=== PATIENT | female | born 1975 | race Caucasian/White ===

== ENCOUNTER 2021-04-26 18:54 | Emergency (ER) | payer OTHER ==
[2021-04-26 19:11] VITALS: BP 112/62
[2021-04-26] MEDS ORDERED: PROPARACAINE 0.5% OPHTH DROPS 15 ML EACHEYE STA (19:37)
[2021-04-26] MEDS ORDERED: ERYTHROMYCIN OPHTH OINT 1 GM TUBE RIGHTEYE STA (19:47)
--- NOTE | 2021-04-26 19:48 | ED Physician Documentation ---
PD HPI OPHTHO - Stated complaint Stated Complaint: RT EYE PX - Chief complaint Chief Complaint: Heent - History obtained from History obtained from: Patient (Severe eye pain starting medially when she foot are soft contact in this morning. She flushed it with contact lens solution but has persistent pain and now some drainage. 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 : None HEENT: None Psych: None Musculoskeletal: None Derm: None - Past Surgical History Past Surgical History: Yes Ortho: Other - Present Medications Home Medications: Ambulatory Orders Medication Instructions Recorded Confirmed Erythromycin Base [Erythromycin 1 appful OP 5XD 7 Days #1 gm 04/26/21 Ophthalmic Ointment] QUEtiapine [SEROquel] 100 mg PO QPM 04/26/21 04/26/21 - Allergies Allergies/Adverse Reactions: Allergies Allergy/AdvReac Type Severity Reaction Status Date / Time No Known Drug Allergies Allergy Verified 04/26/21 19:11 - Social History Does the pt smoke?: No Smoking Status: Never smoker Does the pt drink ETOH?: Yes ETOH Use: Wine Does the pt have substance abuse?: No - Immunizations Immunizations are current?: Yes - POLST Patient has POLST: No PD ED PE NORMAL - Vitals Vital signs reviewed: Yes - General General: Alert and oriented X 3, No acute distress - HEENT HEENT: PERRL, EOMI, Other (Conjunctival injection, soft globes, tiny area of fluorescein uptake inferiorly consistent with small abrasion.) - Neck Neck: Supple, no meningeal sign, No bony TTP - Neuro Neuro: Alert and oriented X 3, Normal speech Results - Vitals Vitals: Vital Signs - 24 hr 04/26/21 19:08 Temperature 36.2 C L Heart Rate 74 Respiratory 16 Rate Blood Pressure 112/62 O2 Saturation 98 Oxygen O2 Source Room air Departure - Departure Disposition: 01 Home, Self Care Clinical Impression: Corneal abrasion Qualifiers: Encounter type: initial encounter Laterality: right Qualified Code(s): S05.01XA - Injury of conjunctiva and corneal abrasion without foreign body, right eye, initial encounter Condition: Good Record reviewed to determine appropriate education?: Yes Instructions: ED Eye Injury Corneal Abrasion Follow-Up: Humberto Clark MD [Provider Admit Priv/Credential] - Prescriptions: Erythromycin Base [Erythromycin Ophthalmic Ointment] 1 appful OP 5XD 7 Days #1 gm Comments: 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 Return for new or worsening symptoms. As discussed, do not wear your contacts until least 3 and preferably 7 days after symptoms have resolved.
== END 2021-04-26 19:57 | disposition home or self-care (01) ==
LOC: ED 18:54
DX: S05.01XA Injury of conjunctiva and corneal abrasion without foreign body, right eye, initial encounter (principal); X58.XXXA Exposure to other specified factors, initial encounter
CPT/HCPCS: 99282; 99283; J3490

== ENCOUNTER 2023-01-13 07:46 | Outpatient (CLI) | payer BC ==
--- NOTE | 2023-01-14 11:21 | Mammography Report ---
BILATERAL DIGITAL SCREENING MAMMOGRAM 3D/2D WITH EXAGGERATED CC: 01/13/2023 CLINICAL: Baseline exam. Routine screening. No prior exams were available for comparison. Both breasts are heterogeneously dense, which may obscure small masses (category c / 51-75% glandular tissue). No significant masses, calcifications, or other findings are seen in either breast. IMPRESSION: NEGATIVE There is no mammographic evidence of malignancy. A 1 year screening mammogram is recommended. Based on Tyrer-Cuzick model (a risk assessment model), the patient's lifetime risk is 28.9% and her 1 0 year risk is 6.0%. If a patient has an elevated risk, a more comprehensive evaluation should be con sidered and/or a referral to a genetic counselor. The [place] [employer], [employer], and NCCN Guidelines advise the consideration of Breast MRI as an adjunct to screening mammog xenia in patients whose "Lifetime risk to develop breast cancer" is 20% or higher. This exam was interpreted at Station ID: [id number]. NOTE: For mammograms, a report in lay terms will be sent to the patient. Approximately 15% of breast malignancies will not be visualized mammographically. In the management of a palpable breast mass, a negative mammogram must not discourage biopsy of a clinically suspicious lesion. Electronically Signed By: Silas Carrera M.D. acr/morenita:01/13/2023 12:36:28 letter sent: No_Letter ACR BI-RADS Category 1: Negative 3341F PARENCHYMAL PATTERN: (D) - The breast(s) demonstrate(s) heterogeneously dense fibroglandular parmoisés harvey. BI-RADS CATEGORY: (1) - 1 Mammogram [id number] 1 year screening LATERALITY: (B)
== END 2023-01-13 07:47 | disposition home or self-care (01) ==
LOC: DI.S 07:46
PROVIDERS: ATTEND Nurse Practitioner Family
DX: Z12.31 Encounter for screening mammogram for malignant neoplasm of breast (principal)

== ENCOUNTER 2023-06-01 19:38 | Outpatient (CLI) | payer BC ==
--- NOTE | 2023-06-02 13:20 | XRAY Report ---
PROCEDURE: Foot 3 View LT INDICATIONS: LEFT FOOT TOE PAIN TECHNIQUE: 3 views of the foot were acquired. COMPARISON: None. FINDINGS: Bones: No fractures or dislocations. Normal alignment on nonweightbearing view. Mild joint space na rrowing and periarticular osteophytosis of the first MTP joint. No suspicious bony lesions. Soft tissues: No suspicious soft tissue calcifications or masses. No soft tissue swelling or radiopa que foreign body. IMPRESSION: 1. No acute fracture. 2. Mild first MTP joint osteoarthritis. Reviewed by: Irene Srinivasan MD on 06/02/2023 1:19 PM PDT Approved by: Irene Srinivasan MD on 06/02/2023 1:19 PM PDT Station ID: [id number]
== END 2023-06-01 19:39 | disposition home or self-care (01) ==
LOC: DI 19:38
PROVIDERS: ATTEND Nurse Practitioner Family
DX: M19.072 Primary osteoarthritis, left ankle and foot (principal)

== ENCOUNTER 2023-07-09 08:00 | Outpatient (CLI) | payer BC, OTHER ==
--- NOTE | 2023-07-09 13:01 | XRAY Report ---
PROCEDURE: Sinus Complete INDICATIONS: HEADACHE/ CONGESTION TECHNIQUE: 3 views of the sinuses were acquired. COMPARISON: None. FINDINGS: Sinuses: The visualized sinuses demonstrate no air-fluid levels or mucosal thickening. The visualiz ed mastoids also appear clear. Bones: No suspicious bony lesions. Nasal septum is midline. IMPRESSION: No air-fluid levels to suggest acute sinusitis. Reviewed by: Adam Shetty on 07/09/2023 1:00 PM PST Approved by: Adam Shetty on 07/09/2023 1:00 PM [facility] Station ID: [id number]
[2023-07-09 14:41] LABS: BASOPHILS % (AUTO) 0.5 %; EOSINOPHILS # (AUTO) 0.1 10^3/uL (0.0-0.7); EOSINOPHILS % (AUTO) 1.8 %; HCT - HEMATOCRIT 45.9 % (37.0-47.0); HGB - HEMOGLOBIN 14.5 g/dL (12.0-16.0); LYMPHOCYTES # (AUTO) 2.1 10^3/uL (1.5-3.5); LYMPHOCYTES % (AUTO) 26.7 %; MEAN CORPUSCULAR HEMOGLOBIN 30.9 pg (27.0-31.0); MEAN CORPUSCULAR HGB CONC 31.6 g/dL (32.0-36.0); MEAN CORPUSCULAR VOLUME 97.9 fL (81.0-99.0); MEAN PLATELET VOLUME 10.2 fL (7.9-10.8); MONOCYTES # (AUTO) 0.5 10^3/uL (0.0-1.0); MONOCYTES % (AUTO) 6.7 %; PLT - PLATELET COUNT 294 10^3/uL (130-450); RED BLOOD COUNT 4.69 10^6/uL (4.20-5.40); RED CELL DISTRIBUTION WIDTH 12.4 % (12.0-15.0); WHITE BLOOD COUNT 7.7 x10^3/uL (4.8-10.8)
[2023-07-09 15:59] LABS: ALBUMIN 4.8 g/dL (3.2-5.5); ALBUMIN/GLOBULIN RATIO 1.5 (1.0-2.2); BILIRUBIN,TOTAL 0.6 mg/dL (0.2-1.0); CALCIUM 9.6 mg/dL (8.5-10.3); CREATININE 0.8 mg/dL (0.6-1.3); POTASSIUM 4.1 mmol/L (3.5-4.5); TOTAL PROTEIN 8.1 g/dL (6.4-8.9)
[2023-07-09 16:12] LABS: THYROID STIMULATING HORMONE 2.22 uIU/mL (0.34-5.60)
== END 2023-07-09 23:59 | disposition home or self-care (01) ==
LOC: DI.S 08:00
PROVIDERS: ATTEND Physician Assistant Medical
DX: R09.81 Nasal congestion (principal); R51.9 Headache, unspecified; R53.83 Other fatigue
CPT/HCPCS: 36415; 80053; 84443; 85025

== ENCOUNTER 2023-07-18 00:06 | Emergency (ER) | payer OTHER ==
[2023-07-18 00:50] LABS: BASOPHILS # (AUTO) 0.1 10^3/uL (0.0-0.1); BASOPHILS % (AUTO) 0.6 %; EOSINOPHILS # (AUTO) 0.3 10^3/uL (0.0-0.7); EOSINOPHILS % (AUTO) 3.2 %; HCT - HEMATOCRIT 41.1 % (37.0-47.0); HGB - HEMOGLOBIN 13.7 g/dL (12.0-16.0); LYMPHOCYTES # (AUTO) 1.8 10^3/uL (1.5-3.5); LYMPHOCYTES % (AUTO) 20.3 %; MEAN CORPUSCULAR HEMOGLOBIN 31.4 pg (27.0-31.0); MEAN CORPUSCULAR HGB CONC 33.3 g/dL (32.0-36.0); MEAN CORPUSCULAR VOLUME 94.1 fL (81.0-99.0); MEAN PLATELET VOLUME 9.3 fL (7.9-10.8); MONOCYTES # (AUTO) 0.8 10^3/uL (0.0-1.0); MONOCYTES % (AUTO) 9.1 %; NEUTROPHILS # (AUTO) 5.9 10^3/uL (1.5-6.6); NEUTROPHILS % (AUTO) 66.7 %; PLT - PLATELET COUNT 240 10^3/uL (130-450); RED BLOOD COUNT 4.37 10^6/uL (4.20-5.40); RED CELL DISTRIBUTION WIDTH 12.1 % (12.0-15.0); WHITE BLOOD COUNT 8.8 x10^3/uL (4.8-10.8)
[2023-07-18 00:58] LABS: BILIRUBIN,URINE NEGATIVE (NEGATIVE); GLUCOSE, URINE (UA) NEGATIVE (NEGATIVE); KETONES,URINE (UA) 15 mg/dL (NEGATIVE); LEUKOCYTE ESTERASE, URINE NEGATIVE (NEGATIVE); NITRITE,URINE NEGATIVE (NEGATIVE); OCCULT BLOOD,URINE NEGATIVE (NEGATIVE); PROTEIN,URINE NEGATIVE (NEGATIVE); UROBILINOGEN,URINE 0.2 (NORMAL) E.U./dL (NORMAL)
[2023-07-18 00:59] LABS: INR 1.1 (0.8-1.2); PT - PROTHROMBIN TIME 12.5 secs (9.9-12.6)
[2023-07-18 01:01] LABS: CLARITY,URINE CLEAR (CLEAR)
[2023-07-18 01:02] LABS: HCG UR QUAL NEGATIVE
[2023-07-18 01:16] LABS: ALBUMIN 4.9 g/dL (3.2-5.5); ALBUMIN/GLOBULIN RATIO 1.9 (1.0-2.2); ALKALINE PHOSPHATASE 65 IU/L (42-121); ALT ALANINE AMINOTRANSFERASE 30 IU/L (10-60); AST ASPARTATE AMINOTRANSFERASE 25 IU/L (10-42); BILIRUBIN,TOTAL 0.6 mg/dL (0.2-1.0); BUN - BLOOD UREA NITROGEN 16 mg/dL (6-20); CALCIUM 9.5 mg/dL (8.5-10.3); CARBON DIOXIDE - CO2 25 mmol/L (21-32); CHLORIDE 101 mmol/L (101-111); CK- CREATINE KINASE 32 IU/L (30-223); CREATININE 0.8 mg/dL (0.6-1.3); CRP - C-REACTIVE PROTEIN < 0.5 mg/dL (<0.5); GFR - MDRD 77 (>89); GLUCOSE 117 mg/dL (74-104); LIPASE 26 U/L (11-82); MAGNESIUM 1.9 mg/dL (1.7-2.3); PHOSPHORUS 3.4 mg/dL (2.5-5.0); POTASSIUM 3.7 mmol/L (3.5-4.5); SODIUM 134 mmol/L (135-145); TOTAL PROTEIN 7.5 g/dL (6.4-8.9)
--- NOTE | 2023-07-18 01:29 | ED Physician Documentation ---
History of Present Illness - Stated complaint Stated Complaint: BODY PX - Chief complaint Chief Complaint: General - History obtained from History obtained from: Patient - Additonal information Additional information: 48-year-old female with no reported past medical history presents by private vehicle from home for several days of tingling sensation in her bilateral lower extremities, new tremor, intermittent headaches. Patient had test confirmed COVID-[address] [facility] of this year. Afterwards she noticed the tingling sensation in the back of her bilateral lower extremities into the bases of her feet. Approximately 1.5 weeks ago the patient had a severe headache and blurred vision, she went to the walk-in clinic and was diagnosed with a sinus infection, which has since improved. Patient reports worsening tremor in her hands, at night she will feel intense chills and restless legs, making it difficult for her to sleep. The last 2 nights have been even more intense than usual. She was reviewing her symptoms on [employer], which stated that these were signs of possible MS. She called her insurance company's nursing hotline, and she was referred to the emergency department for evaluation. In the emergency department the patient continues to endorse a tingling sensation in the back of her bilateral lower extremities to her feet as well as a resting tremor in her bilateral hands. Denies numbness, weakness. Review of Systems Constitutional: reports: Fatigue. denies: Fever, Chills Cardiac: denies: Chest pain / pressure, Palpitations, Calf pain Respiratory: denies: Dyspnea, Cough, Wheezing GI: denies: Abdominal Pain, Nausea, Vomiting, Constipation : denies: Dysuria, Frequency Neurologic: reports: Headache, Other (tingling, tremor). 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 : None HEENT: None Psych: None Musculoskeletal: None Derm: None - Past Surgical History Past Surgical History: Yes Ortho: Other - Present Medications Home Medications: Ambulatory Orders Medication Instructions Recorded Confirmed QUEtiapine [SEROquel] 100 mg PO QPM 04/26/21 07/18/23 LORazepam [Ativan] 1 mg PO TID PRN #12 tablet 07/18/23 Propranolol [Inderal] 10 mg PO BID #30 tablet 07/18/23 - Allergies Allergies/Adverse Reactions: Allergies Allergy/AdvReac Type Severity Reaction Status Date / Time No Known Drug Allergies Allergy Verified 07/18/23 00:10 - Social History Does the pt smoke?: No Smoking Status: Never smoker Does the pt drink ETOH?: Yes Does the pt have substance abuse?: No - Immunizations Immunizations are current?: Yes - POLST Patient has POLST: No PD ED PE NORMAL - Vitals Vital signs reviewed: Yes - General General: Alert and oriented X 3, No acute distress, Well developed/nourished - HEENT HEENT: Atraumatic, PERRL, EOMI, Ears normal - Neck Neck: Supple, no meningeal sign - Cardiac Cardiac: RRR - Respiratory Respiratory: No respiratory distress - Abdomen Abdomen: Soft, Non tender, Non distended - Derm Derm: Normal color, Warm and dry, No rash - Extremities Extremities: No deformity, No tenderness to palpate, Normal ROM s pain, No edema - Neuro Neuro: Alert and oriented X 3, belt fixer 2-12 intact, No motor deficit, No sensory deficit, Normal speech - Psych Psych: Normal mood Results - Vitals Vitals: Vital Signs - 24 hr 07/18/23 07/18/23 07/18/23 00:10 00:14 02:14 Temperature 36.8 C Heart Rate 90 80 Respiratory 16 18 Rate Blood Pressure 140/73 H 116/68 O2 Saturation 99 20 L 99 07/18/23 03:00 Temperature Heart Rate 99 Respiratory 22 Rate Blood Pressure 120/66 O2 Saturation 100 Oxygen O2 Source Room air - Labs Labs: Laboratory Tests 07/18/23 07/18/23 07/18/23 00:45 00:46 00:46 WBC 8.8 RBC 4.37 Hgb 13.7 Hct 41.1 MCV 94.1 MCH 31.4 H MCHC 33.3 RDW 12.1 Plt Count 240 MPV 9.3 Neut # (Auto) 5.9 Lymph # (Auto) 1.8 Placer # (Auto) 0.8 Eos # (Auto) 0.3 Baso # (Auto) 0.1 Absolute Nucleated RBC 0.00 Nucleated RBC % 0.0 ESR PT 12.5 INR 1.1 Sodium Potassium Chloride Carbon Dioxide Anion Gap BUN Creatinine Estimated GFR (MDRD) Glucose Calcium Phosphorus Magnesium Total Bilirubin AST ALT Alkaline Phosphatase Ammonia Total Creatine Kinase C-Reactive Protein Total Protein Albumin Globulin Albumin/Globulin Ratio Lipase Urine Color YELLOW Urine Clarity CLEAR Urine pH 6.0 Ur Specific [place] 1.015 Urine Protein NEGATIVE Urine Glucose (UA) NEGATIVE Urine Ketones 15 H Urine Occult Blood NEGATIVE Urine Nitrite NEGATIVE Urine Bilirubin NEGATIVE Urine Urobilinogen 0.2 (NORMAL) Ur Leukocyte Esterase NEGATIVE Ur Microscopic Review NOT INDICATED Urine Culture Comments NOT INDICATED Urine HCG, Qual NEGATIVE 07/18/23 07/18/23 07/18/23 00:46 00:46 00:46 WBC RBC Hgb Hct MCV MCH MCHC RDW Plt Count MPV Neut # (Auto) Lymph # (Auto) Placer # (Auto) Eos # (Auto) Baso # (Auto) Absolute Nucleated RBC Nucleated RBC % ESR 5 PT INR Sodium 134 L Potassium 3.7 Chloride 101 Carbon Dioxide 25 Anion Gap 8.0 BUN 16 Creatinine 0.8 Estimated GFR (MDRD) 77 L Glucose 117 H Calcium 9.5 Phosphorus 3.4 Magnesium 1.9 Total Bilirubin 0.6 AST 25 ALT 30 Alkaline Phosphatase 65 Ammonia 19.2 Total Creatine Kinase 32 C-Reactive Protein < 0.5 Total Protein 7.5 Albumin 4.9 Globulin 2.6 Albumin/Globulin Ratio 1.9 Lipase 26 Urine Color Urine Clarity Urine pH Ur Specific [place] Urine Protein Urine Glucose (UA) Urine Ketones Urine Occult Blood Urine Nitrite Urine Bilirubin Urine Urobilinogen Ur Leukocyte Esterase Ur Microscopic Review Urine Culture Comments Urine HCG, Qual PD Medical Decision Making - ED course Complexity details: reviewed results, re-evaluated patient, considered differential, d/w patient, d/w family ED course: Progressive worsening of tingling, tremors, muscle spasms since COVID-19 infection in late May. Patient reports ongoing tingling sensation in her lower extremities, currently there is no focal neurologic deficit on exam, sensation is intact and equal bilaterally. Patient does have a tremor in her bilateral hands.Patient's primary concern is that she may have a neurologic process such as MS. I explained to the patient that this would not be able to be diagnosed in the emergency department as it would need an MRI and neurology consult, possibly even a lumbar puncture. MRI and neurology are not available at this time in our emergency department, and there is no emergent indication for a lumbar puncture. Laboratory work, CT of the brain, chest x-ray ordered for evaluation. Laboratory work is unremarkable. CT of the brain shows no obvious acute abnormalities. Chest x-ray is reviewed, unremarkable. Patient has remained hemodynamically stable, no change in symptoms since time of arrival to the emergency department. Patient and informed of all lab and imaging results at bedside. Reemphasized that diagnosis of MS would need additional testing and neurology consult. Referral to neurology provided. Patient requested medication for muscle tremor and to help her sleep at night due to her symptoms. We will trial propanolol due to the presence of tremor. A very small amount of lorazepam was also sent to the pharmacy. Patient counseled on the importance of primary care and neurology follow-up. Departure - Departure Disposition: Home, Self Care Clinical Impression: Tremor Condition: Stable Instructions: Essential Tremor ET Follow-Up: Peter Pfeiffer MD [Physician No Access] - Prescriptions: LORazepam [Ativan] 1 mg PO TID PRN #12 tablet PRN Reason: Anxiety Propranolol [Inderal] 10 mg PO BID #30 tablet Comments: You were seen today for tingling in your legs as well as tremors. Your laboratory work, brain CT, and chest X ray today were normal. You mentioned that you were concerned about MS, additional work-up is needed before this can be officially ruled out as a cause of your symptoms. You will need to follow-up with a neurologist, a referral to a physician at [facility] in [place] has been provided, you may also follow-up with anyone else that your insurance allows. You have been prescribed 2 medications today. Propranolol can be useful for tremors and may help. You are also being sent home with a prescription for Ativan. I recommend using this sparingly to avoid dependence. Follow-up with your primary care physician. Forms: PCP List Discharge Date/Time: 07/18/23 03:45
--- NOTE | 2023-07-18 01:37 | XRAY Report ---
PROCEDURE: Chest 1 View X-Ray INDICATIONS: tremor TECHNIQUE: One view of the chest was acquired. COMPARISON: None. FINDINGS: Surgical changes and devices: None. Lungs and pleura: No pleural effusions or pneumothorax. Lungs are clear. Mediastinum: Mediastinal contours appear normal. Heart size is normal. Bones and chest wall: No suspicious bony lesions. Overlying soft tissues appear unremarkable. IMPRESSION: No acute cardiopulmonary process. Reviewed by: Loco Ferraro MD on 07/18/2023 1:35 AM [facility] Approved by: Loco Ferraro MD on 07/18/2023 1:35 AM [facility] Station ID: [id number]
[2023-07-18] MEDS ORDERED: LORazepam 1 MG TABLET PO STA (03:17)
[2023-07-18] MEDS ORDERED: PROPRANOLOL 10 MG TABLET PO ONE (03:20)
[2023-07-18 03:34] VITALS: BP 120/66; O2SAT 100
--- NOTE | 2023-07-18 08:59 | CT Report ---
PROCEDURE: HEAD WO INDICATIONS: headaches, new tremor TECHNIQUE: Noncontrast 4.5 mm thick angled axial sections acquired from the foramen magnum to the vertex. For r adiation dose reduction, the following was used: automated exposure control, adjustment of mA and/or kV according to patient size. COMPARISON: None. FINDINGS: Image quality: Excellent. CSF spaces: Basal cisterns are patent. No extra-axial fluid collections. Ventricles are normal in size and shape. Brain: No midline shift. No intracranial masses or hemorrhage. Bowen-white matter interface is norm al. Skull and face: Calvarium and visualized facial bones are intact, without suspicious lesions. Sinuses: Mild mucosal thickening ethmoid sinuses. Air-fluid levels in the left maxillary sinus. IMPRESSION: No acute intracranial pathology. Mild sinus disease. Findings are concordant with preliminary interpretation provided by [facility]. Reviewed by: Ruslan Montero MD on 07/18/2023 7:58 AM [facility] Approved by: Ruslan Montero MD on 07/18/2023 7:58 AM [facility] Station ID: [id number]
== END 2023-07-18 03:45 | disposition home or self-care (01) ==
LOC: ED 00:06
DX: R25.1 Tremor, unspecified (principal); Z79.899 Other long term (current) drug therapy
CPT/HCPCS: 36415; 70450; 71045; 80053; 81003; 81025; 82140; 82550; 83690; 83735; 84100; 85025; 85610; 85651; 86140; 93005; 99284; A9270; J8499; 81001; 87086